=== PATIENT | female | born 1985 | race Caucasian/White ===

== ENCOUNTER 2024-09-12 03:12 | Emergency (ER) | payer BC, MEDICAID, SELFPAY ==
[2024-09-12 03:13] VITALS: BMI 31.4
[2024-09-12 03:29] VITALS: BP 167/94; PULSE 72; RESP 18; TEMP 36.8; O2SAT 99
--- NOTE | 2024-09-12 03:45 | EKG_ITS ---
[facility] Test Date: 2024-09-12 Pat Name: ADALBERTO DE LA TORRE Department: Room: - Gender: Female [employer]: : 1985 Requested By: Nikos Cisneros Order Number: [id number] Reading MD: Nikos Cisneros Measurements Intervals Lott Rate: 71 P: 46 ND: 162 QRS: 26 QRSD: 78 T: 47 QT: 391 QTc: 425 Interpretive Statements SINUS RHYTHM No previous ECG available for comparison /store/[email or web address]/[id number]
--- NOTE | 2024-09-12 03:46 | PD.EDABDPN ---
ED Abdominal Pain RME/HPI General Chief Complaint: Abdominal Pain Stated complaint: MID UPPER ABDOMINAL PAIN Time seen by provider: 09/12/24 03:37 Arrival date/time: 09/12/24 03:12 39F with history of HTN presents to ED with 1 day of epigastric pain and N/V. Patient states this has happened 3 times in the past few months. Patient states pain usually goes away with some meds and a hot shower. Not today. Limitations: no limitations Related Data Home Medications ?Medication ?Instructions ?Recorded ?Confirmed norethindrone-e.estradiol 1 tab PO QDAY 03/06/19 03/06/19 triphasic 0.5 mg/0.75 mg/1 mg-35 mcg tablet (Pirmella) Previous Rx's ?Medication ?Instructions ?Recorded azithromycin 250 mg tablet See Rx Instructions PO .COMPLEX #6 03/07/19 (Zithromax Z-Edi) tabs hydrocodone 5 mg-acetaminophen 325 1 tab PO Q6H PRN pain #30 tabs 03/07/19 mg tablet ([place]) ibuprofen 800 mg tablet 800 mg PO TID PRN pain #30 tabs 03/07/19 ondansetron 4 mg disintegrating 4 mg PO Q8H PRN nausea and 09/12/24 tablet vomiting #14 tabs Allergies Allergy/AdvReac Type Severity Reaction Status Date / Time shellfish derived Allergy itchy Verified 03/07/19 08:21 throat Review of Systems Review of Systems Systems Reviewed: All systems reviewed, normal except as documented Constitutional Constitutional: Reports system reviewed and no additional complaints, except as documented, Denies fever(s) and Denies headache(s) ENT Ears, Nose, Mouth, and Throat: Denies disequilibrium and Denies headache(s) Cardiovascular Cardiovascular: Reports system reviewed and no additional complaints, except as documented, Denies chest pain and Denies dyspnea Respiratory Respiratory: Reports system reviewed and no additional complaints, except as documented, Denies cough and Denies dyspnea Gastrointestinal Gastrointestinal: Reports system reviewed and no additional complaints, except as documented, Reports as per HPI, Reports abdominal pain, Reports nausea and Reports vomiting Neurologic Neurologic: Reports system reviewed and no additional complaints, except as documented, Denies confusion, Denies disequilibrium and Denies headache(s) Psychiatric Psychiatric: Denies confusion Past Medical History Past Medical History NEUROLOGIC: Negative Neurological Disorders or Seizures CARDIAC: Negative Cardiac Disorders or Congestive Heart Failure RESPIRATORY: Negative Chronic Obstructive Pulmonary Disease (COPD) GASTROINTESTINAL: Negative Gastrointestinal Disorders or Hepatitis GENITOURINARY: Negative Genitourinary Disorders or Renal Disease REPRODUCTIVE: Positive Previous Pregnancies (X3) MUSCULOSKELETAL: Negative Musculoskeletal Disorders ENDOCRINE: Negative Endocrine Disorders, Diabetes Mellitus Type 1 or Diabetes Mellitus Type 2 HEMATOLOGIC: Negative Blood Disorders, Anemia or Clotting Problems OTHER HISTORY: Positive Chicken Pox; Negative Hospitalization, Autoimmune Disease, Shingles, Falls, Blood Transfusions, Anesthesia Reactions, Chemotherapy, Radiation Therapy, MRSA, Measles, Mumps or Cancer Family History FAMILY HISTORY: Positive Family Psychiatric Problems (MOTHER (ANXIETY)), Family Respiratory Disorders (MOTHER (ASTHMA)) and Family Surgery (MOTHER); Negative Family Cardiac Disorders, Family Gastrointestinal Problems, Family Cancer or Family Anesthesia Reaction Surgical History SURGICAL: Negative Cardiac Surgery Social History SMOKING STATUS: Never smoker ED Exam General Limitations: Present no limitations General appearance: Present alert and in no apparent distress Head Head exam: Present atraumatic Eye Eye exam: Present normal appearance, PERRL and EOMI ENT ENT exam: Present normal exam, normal oropharynx and mucous membranes moist Neck Neck exam: Present normal inspection, full ROM and trachea midline Chest Chest inspection: Present normal inspection and symmetric chest wall rise Respiratory Respiratory exam: Present normal lung sounds bilaterally Cardiovascular Cardiovascular exam: Present regular rate, normal rhythm and normal heart sounds Abdominal Exam Abdominal exam: Present soft and normal bowel sounds Extremities Exam Extremities exam: Present normal inspection and full ROM Back Exam Back exam: Present normal inspection and full ROM Neurological Exam Neurological exam: Present alert, oriented X3 and CN II-XII intact Psychiatric Psychiatric exam: Present normal affect and normal mood Skin Skin exam: Present warm, dry, intact and normal color Course Quality Measures none Orders Category Date Time Status EKG (ED ONLY) *Do not use* NOW Care 09/12/24 03:45 Completed EKG (ED Only) Stat Exams 09/12/24 03:45 Draft Famotidine [Pepcid] Med 09/12/24 03:37 Discontinued 40 mg PO X1 ONE Lidocaine 2% Viscous [Xylocaine 2% Viscous] Med 09/12/24 03:37 Discontinued 15 ml PO X1 ONE Ondansetron Odt [Zofran Odt] Med 09/12/24 03:37 Discontinued 4 mg PO X1 ONE Vital Signs Vital signs: Vital Signs Temperature 98.3 F 09/12/24 03:29 Pulse Rate 72 09/12/24 03:29 Respiratory Rate 18 09/12/24 03:29 Blood Pressure 167/94 H 09/12/24 03:29 Pulse Oximetry (%) 99 09/12/24 03:29 Oxygen Delivery Method Room Air 09/12/24 03:29 O2 at 99% on RA and WNLs Abdominal Pain MDM MDM Narrative MDM Narrative:: 39F with history of HTN presents to ED with 1 day of epigastric pain and N/V. Patient states this has happened 3 times in the past few months. Patient states pain usually goes away with some meds and a hot shower. Not today. Physical exam reveals no ab tenderness. Patient states pain is actually better with palpation. Patient is afebrile, calm, and alert. EKG is NSR. GI cocktail relieved symptoms. Patient data External records reviewed:: [facility] previous records Clinical information provided by:: patient Social determinants that could affect healthcare access:: none Patient has the following chronic illnesses:: HTN How is presenting disease/condition affected by chronic disease/condition?: uneffected by Evaluation data The following diagnostics were reviewed and interpreted by me:: EKG tracing(s) Lab and/or radiology exams considered but not ordered:: ordered Interpretation Summary: above Medications / Prescriptions Medications or Prescriptions considered but not ordered:: ordered Medication administrations:: Medication Administration History Discontinued Medications Famotidine (Famotidine 20 Mg Tablet) 40 mg PO X1 ONE Stop: 09/12/24 03:38 Last Admin: 09/12/24 03:55 Dose: 40 mg Documented By: SUNSHINE Lidocaine HCl (Lidocaine Viscous 2% 15 Ml Udc) 15 ml PO X1 ONE Stop: 09/12/24 03:38 Last Admin: 09/12/24 03:55 Dose: 15 ml Documented By: SUNSHINE Ondansetron HCl (Ondansetron Odt 4 Mg Tabrap) 4 mg PO X1 ONE; Protocol Stop: 09/12/24 03:38 Last Admin: 09/12/24 03:50 Dose: 4 mg Documented By: GÉNESIS above Consultations Consultation(s) initiated? (list below): No Diagnosis Differential diagnosis abdominal pain: abdominal pain, acute appendicitis, calculus of kidney, constipation, diverticulitis, endometriosis, gastroenteritis, pancreatitis, small bowel obstruction and other (hernia, ACS, gastritis) Most likely diagnosis given after review of the tests above:: gastritis Admission Indicated Admission indicated?: not indicated Admission Request Was there a request for admission?: No Disposition Plan Disposition Plan: Discharge Discharge Attestation Discharge Attestation: The patient and all family members were given an opportunity to ask questions and understood the discharge instructions. Discharge instructions specifically effects, indications for sooner follow up or return to the emergency department, and the expected course of current diagnosis. Patient condition: Stable Discharge Plan Plan Patient Disposition: HOME (Self Care) Disposition Comment: Stable Prescriptions/Referrals Prescriptions/Med Rec: New ondansetron 4 mg tablet,disintegrating 4 mg PO Q8H PRN (Reason: nausea and vomiting) Qty: 14 0RF No Action Pirmella 0.5/0.75/1 mg- 35 mcg Tablet 1 tab PO QDAY ibuprofen 800 mg tablet 800 mg PO TID PRN (Reason: pain) Qty: 30 0RF hydrocodone-acetaminophen [[place]] 5-325 mg tablet 1 tab PO Q6H MDD 6 PRN (Reason: pain) Qty: 30 0RF azithromycin [Zithromax Z-Edi] 250 mg tablet See Rx Instructions .ROUTE .COMPLEX Qty: 6 0RF Rx Instructions: take 500 mg today (day 1), then 250 mg for 4 days (days 2-5) Problem List Clinical Impression: Gastritis Patient/Caregiver Discharge Instructions Education Materials: ED Gastritis (Adult) Additional Instructions: Please follow-up with PCP within 24-48 hours and return immediately if symptoms worsen. Can try OTC Pepcid. If problem persists, see PCP for PPI therapy and/or additional evaluation. Print Language: Spanish Stand Alone Forms: Patient Portal Info Letter ESTHER/MAHOGANY Supervising Physician CANDI Supervising Physician: Dr. Addison
[2024-09-12] MEDS: ONDANSETRON ODT 4 MG TABRAP PO (03:50)
[2024-09-12] MEDS: FAMOTIDINE 20 MG TABLET 40 MG PO (03:55)
[2024-09-12] MEDS: LIDOCAINE VISCOUS 2% 15 ML UDC PO (03:55)
== END 2024-09-12 05:17 | disposition home or self-care (01) ==
LOC: SERX 06:32
PROVIDERS: Emergency Provider Emergency Medicine; PCP Family Medicine
DX: K29.70 Gastritis, unspecified, without bleeding (principal); I10 Essential (primary) hypertension
CPT/HCPCS: 93005; 99283; J3490; Q0162; A9270

== ENCOUNTER 2024-10-08 21:55 | Emergency (ER) | payer BC, MEDICAID, SELFPAY ==
[2024-10-08 21:55] VITALS: BMI 31.6
--- NOTE | 2024-10-08 22:25 | PD.EDABDPN ---
ED Abdominal Pain RME/HPI General Chief Complaint: Abdominal Pain Stated complaint: UPPER ABDOMINAL PAIN, BP HIGH Time seen by provider: 10/08/24 22:24 Arrival date/time: 10/08/24 21:55 RME / HPI RME / HPI narrative: This section includes all my notes and documentations, including HPI, PE, and ED course. Phuc Addison MD HPI: 39 y/o female presents to ED c/o epigastric abdominal pain and 1 episode of vomiting x approximately 8 hours. Patient believed pain was due to hunger, so she ate pizza which made it worse, causing her to vomit. Patient take Claritin daily for allergies and an unknown BP medication. Denies any chance of being . No other complaints. ROS: All negative except as documented in HPI. Physical Exam: General: Alert and oriented. No acute distress when remaining still. Eyes: Conjunctivae and lids clear. ENT: No nasal congestion. Neck: Supple. Heart: RRR. Lungs: No respiratory distress. Good air movement. No rhonchi, wheezing, rales. Abdomen: Mild to moderate RUQ tenderness. Normal bowel sounds. No distension. No rebound or guarding. Back: No CVA tenderness. Skin: Warm and dry. Neuro: Alert and oriented X 3. I reviewed all diagnostic test results. My review of the Gall Bladder US report is cholelithiasis. Blood tests unremarkable. At this point, diagnoses include Gallstones. Treatment here included Zofran, Tylenol with Codeine. Significant improvement noted. Recommended more outpatient care. Based on my best medical judgment, made decision no further evaluation or treatment indicated at this time. Patient understands and agrees to the discharge instructions customized and printed, see below. Discharge Instructions from Dr. Addison: 1. After evaluation, your symptoms are due to gallstone(s).? You need gallbladder to help digest fatty foods. 2. So to prevent future attacks, avoid all fatty and oily and greasy and buttery and dairy foods.? This usually means take out and fast food restaurants. 3. Zofran for nausea/vomiting.? Tylenol with codeine for severe pain.?? 4. See a private doctor on 10/10/2024 for recheck and further care. Ask to review all test results and official radiology reports, to make sure you receive all necessary follow-ups and monitoring. Ask for help seeing a general surgeon to discuss elective surgery. 5. Seek immediate medical care with intolerable pain, fever, or with any concerns. Phuc Addison MD Related Data Home Medications ?Medication ?Instructions ?Recorded ?Confirmed norethindrone-e.estradiol 1 tab PO QDAY 03/06/19 03/06/19 triphasic 0.5 mg/0.75 mg/1 mg-35 mcg tablet (Pirmella) Previous Rx's ?Medication ?Instructions ?Recorded azithromycin 250 mg tablet See Rx Instructions PO .COMPLEX #6 03/07/19 (Zithromax Z-Edi) tabs hydrocodone 5 mg-acetaminophen 325 1 tab PO Q6H PRN pain #30 tabs 03/07/19 mg tablet ([place]) ibuprofen 800 mg tablet 800 mg PO TID PRN pain #30 tabs 03/07/19 ondansetron 4 mg disintegrating 4 mg PO Q8H PRN nausea and 09/12/24 tablet vomiting #14 tabs acetaminophen 300 mg-codeine 30 mg 2 tab PO Q8H PRN pain #20 tabs 10/09/24 tablet ondansetron 4 mg disintegrating 4 mg PO TID PRN nausea and 10/09/24 tablet vomiting 30 days #10 tabs Allergies Allergy/AdvReac Type Severity Reaction Status Date / Time shellfish derived Allergy itchy Verified 03/07/19 08:21 throat Review of Systems Review of Systems Systems Reviewed: All systems reviewed, normal except as documented Past Medical History Past Medical History REPRODUCTIVE: Positive Previous Pregnancies (X3) OTHER HISTORY: Positive Chicken Pox Family History FAMILY HISTORY: Positive Family Psychiatric Problems (MOTHER (ANXIETY)), Family Respiratory Disorders (MOTHER (ASTHMA)) and Family Surgery (MOTHER) ED Exam Narrative Physical exam: Refer to HPI above. Course Quality Measures none Orders Category Date Time Status US gall bladder Stat Exams 10/09/24 00:00 Taken Amylase Stat Lab 10/08/24 22:38 Completed Bilirubin,Direct Stat Lab 10/08/24 22:38 Completed CBC Stat Lab 10/08/24 22:38 Completed CMP [Comprehensive Metabolic Panel] Stat Lab 10/08/24 22:38 Completed Lipase Stat Lab 10/08/24 22:38 Completed Magnesium Stat Lab 10/08/24 22:38 Completed ACETAMINOPHEN w/COD 300-30 [Tylenol w/Cod #3] Med 10/08/24 22:24 Discontinued 2 tab PO X1 ONE Ondansetron Odt [Zofran Odt] Med 10/08/24 22:24 Discontinued 4 mg PO X1 ONE Vital Signs Vital signs: Vital Signs Temperature 97.9 F 10/09/24 00:07 Pulse Rate 79 10/09/24 00:07 Respiratory Rate 16 10/09/24 00:07 Blood Pressure 170/93 H 10/09/24 00:07 Pulse Oximetry (%) 99 10/09/24 00:07 Oxygen Delivery Method Room Air 10/09/24 00:07 Abdominal Pain MDM MDM Narrative MDM Narrative:: Scribe Attestation: Della Galo, am scribing for and in the presence of Dr. Addison. Provider Notation: Although this document has been carefully reviewed, there may still be some phonetic and other typographical errors.? These errors are purely grammatical due to imperfections in the software program and should not be construed in any way to? compromise the substance of the patient's medical care during this visit. 39 y/o female presents to ED c/o epigastric abdominal pain and 1 episode of vomiting x approximately 8 hours. Patient data External records reviewed:: [facility] previous records ( Reviewed prior ED records from 09/12/24. Patient was seen for Gastritis.) Clinical information provided by:: patient Social determinants that could affect healthcare access:: none Patient has the following chronic illnesses:: None reported How is presenting disease/condition affected by chronic disease/condition?: no chronic disease Evaluation data The following diagnostics were reviewed and interpreted by me:: lab results and radiology exam(s) Lab and/or radiology exams considered but not ordered:: None Interpretation Summary: I reviewed all diagnostic test results. My review of the Gall Bladder US report is cholelithiasis. Blood tests unremarkable. Medications / Prescriptions Medications or Prescriptions considered but not ordered:: None Medication administrations:: Medication Administration History Discontinued Medications Acetaminophen/Codeine Phosphate (Acetaminophen W/Cod 300-30 Tablet) 2 tab PO X1 ONE Stop: 10/08/24 22:25 Last Admin: 10/08/24 22:54 Dose: 2 tab Documented By: UMM Ondansetron HCl (Ondansetron Odt 4 Mg Tabrap) 4 mg PO X1 ONE; Protocol Stop: 10/08/24 22:25 Last Admin: 10/08/24 22:55 Dose: 4 mg Documented By: UMM Tylenol w/ Codeine, Zofran Consultations Consultation(s) initiated? (list below): No Diagnosis Differential diagnosis abdominal pain: abdominal pain, acute appendicitis, calculus of kidney, constipation, diverticulitis, gastroenteritis, pancreatitis, small bowel obstruction and other (Biliary colic) Most likely diagnosis given after review of the tests above:: Gallstones Admission Indicated Admission indicated?: not indicated Explain why admission is indicated or not indicated:: With significant improvement, there was no indication for admission. Admission Request Was there a request for admission?: No Disposition Plan Disposition Plan: Discharge Discharge Attestation Discharge Attestation: The patient and all family members were given an opportunity to ask questions and understood the discharge instructions. Discharge instructions specifically effects, indications for sooner follow up or return to the emergency department, and the expected course of current diagnosis. Patient condition: Stable Discharge Plan Plan Patient Disposition: HOME (Self Care) Prescriptions/Referrals Prescriptions/Med Rec: New acetaminophen-codeine 300-30 mg tablet 2 tab PO Q8H MDD 6 PRN (Reason: pain) Qty: 20 0RF ondansetron 4 mg tablet,disintegrating 4 mg PO TID PRN (Reason: nausea and vomiting) 30 Days Qty: 10 0RF No Action Pirmella 0.5/0.75/1 mg- 35 mcg Tablet 1 tab PO QDAY ibuprofen 800 mg tablet 800 mg PO TID PRN (Reason: pain) Qty: 30 0RF hydrocodone-acetaminophen [[place]] 5-325 mg tablet 1 tab PO Q6H MDD 6 PRN (Reason: pain) Qty: 30 0RF azithromycin [Zithromax Z-Edi] 250 mg tablet See Rx Instructions .ROUTE .COMPLEX Qty: 6 0RF Rx Instructions: take 500 mg today (day 1), then 250 mg for 4 days (days 2-5) ondansetron 4 mg tablet,disintegrating 4 mg PO Q8H PRN (Reason: nausea and vomiting) Qty: 14 0RF Referrals: Real Willson MD [Primary Care Provider] - In 1 week Problem List Clinical Impression: Gallstones Patient/Caregiver Discharge Instructions Discharge Activity: activity as tolerated Education Materials: ED Gallstones with Biliary Colic Additional Instructions: Discharge Instructions from Dr. Addison: 1. After evaluation, your symptoms are due to gallstone(s).? You need gallbladder to help digest fatty foods. 2. So to prevent future attacks, avoid all fatty and oily and greasy and buttery and dairy foods.? This usually means take out and fast food restaurants. 3. Zofran for nausea/vomiting.? Tylenol with codeine for severe pain.?? 4. See a private doctor on 10/10/2024 for recheck and further care. Ask to review all test results and official radiology reports, to make sure you receive all necessary follow-ups and monitoring. Ask for help seeing a general surgeon to discuss elective surgery. 5. Seek immediate medical care with intolerable pain, fever, or with any concerns. Print Language: Sammarinese Stand Alone Forms: Lorie Award Info., Patient Portal Info Letter
[2024-10-08] MEDS: ACETAMINOPHEN w/COD 300-30 TABLET 2 TAB PO (22:54)
[2024-10-08] MEDS: ONDANSETRON ODT 4 MG TABRAP PO (22:55)
[2024-10-08 23:07] LABS: Basophils # (Auto) 0.1 Thou/mm3 (0.0-0.2); Basophils % (Auto) 1 % (0-2.5); Eosinophils # (Auto) 0.1 Thou/mm3 (0.0-0.5); Eosinophils % (Auto) 1 % (0-10); Hemoglobin 13.2 g/dL (12.0-16.0); Immature Granulocytes % (Auto) 1 % (0-0); Immature Granulocytes Auto 0.07 Thou/mm3 (0.00-0.00); Lymphocytes # (Auto) 2.3 Thou/mm3 (1.0-4.8); Lymphocytes % (Auto) 17 % (10-50); Mean Corpuscular HGB Conc 34.7 g/dl (31.0-37.0); Mean Corpuscular Hemoglobin 30.4 pg (25.0-35.0); Mean Corpuscular Volume 88 fL (80-100); Monocytes # (Auto) 0.8 Thou/mm3 (0.0-0.8); Monocytes % (Auto) 6 % (0-12); Neutrophils # (Auto) 10.7 Thou/mm3 (1.8-7.7); Neutrophils % (Auto) 76 % (37-80); Nucleated Red Blood Cell % 0 /100 WBC (0); Platelet Count 299 Thou/mm3 (140-440); RDW Standard Deviation 40.1 fL (36.4-46.3); Red Blood Count 4.34 Miln/mm3 (4.00-5.20); White Blood Count 14.1 Thou/mm3 (3.6-11.0)
[2024-10-08 23:20] LABS: Alanine Aminotransferase 38 U/L (10-49); Albumin, Serum 4.7 gm/dL (3.5-5.0); Albumin/Globulin Ratio 1.7 (1.2-2.2); Alkaline Phosphatase 95 U/L (46-116); Amylase 88 U/L (30-118); Anion Gap 12 (7-16); Aspartate Amino Transferase 19 U/L (0-34); BUN/Creatinine Ratio 14 Ratio (12-20); Bilirubin,Direct 0.1 mg/dL (0.0-0.3); Bilirubin,Total 0.4 mg/dL (0.3-1.2); Blood Urea Nitrogen 11 mg/dL (9-23); Calcium 9.2 mg/dL (8.3-10.6); Calcium (Corrected) 9.2 mg/dL (8.5-10.1); Chloride 103 mMol/L (98-107); Creatinine (Component) 0.8 mg/dL (0.6-1.3); Estimated Creatinine Clearance 102.4 mL/min (>60); Globulin 2.8 gm/dL (2.3-3.5); Glucose 133 mg/dL (74-106); Lipase 37 U/L (12-53); Magnesium 1.8 mg/dL (1.6-2.6); Osmolality,Calculated 280 (275-295); Sodium 140 mMol/L (136-145); Total Protein 7.5 gm/dL (5.7-8.2); eGFR > 60 See Note
--- NOTE | 2024-10-09 | XR_ITS ---
Examination: Abdomen sonogram, Limited Date and time of exam: 02/09/2025 0027 hours INDICATION: Epigastric pain radiating to the back beginning one month ago Technique: Real-time holliday scale transabdominal sonographic images of the upper abdomen obtained. Findings: Multiple gallstones Gallbladder wall 0.25 cm no edema Common bile duct 0.5 cm Pancreatic head 2.7 cm Liver 14.5 cm no focal liver lesions Normal hepatopedal portal venous O Date and IVC IMPRESSION: Cholelithiasis, borderline thickening gallbladder wall, clinical correlation advised, consider HIDA scan or MRCP follow-up
[2024-10-09 00:07] VITALS: BP 170/93; PULSE 79; RESP 16; TEMP 36.6; O2SAT 99
--- NOTE | 2024-10-09 02:22 | PRELIM_ITS ---
Right upper quadrant abdominal ultrasound. October 09, 2024 at 0027 hours Clinical history: Right upper quadrant tenderness. Comparison: No prior study is available for comparison. Findings: The liver is normal in echogenicity. No intrahepatic biliary ductal dilatation. The main portal vein is patent and demonstrates hepatopetal flow. Multiple calculi are noted within the gallbladder with gallbladder wall thickening (likely greater than 3 mm - technologist appears to have underestimated). No pericholecystic fluid is demonstrated. The common bile duct is normal in caliber at 5 mm. The inferior vena cava is unremarkable to the extent visualized. The abdominal aorta is not imaged/not demonstrated. Impression: 1. Cholelithiasis with gallbladder wall thickening, suspicious for acute cholecystitis. 2. Other findings as described above. Suggest clinical correlation and follow up accordingly. Report Electronically Signed By: Valentin Schaeffer 10/09/2024 2:20:44 AM [EST]
== END 2024-10-09 01:50 | disposition home or self-care (01) ==
PROVIDERS: Emergency Provider Emergency Medicine; PCP Family Medicine
DX: K80.20 Calculus of gallbladder without cholecystitis without obstruction (principal)
CPT/HCPCS: 36415; 76705; 80053; 82150; 82248; 83690; 83735; 85025; 99284; Q0162; A9270